=== PATIENT | male | born 1980 | race Asian ===

== ENCOUNTER 2018-07-07 03:59 | Inpatient (IN) | payer OTHER ==
[2018-07-07] VITALS (7 sets, daily range): BP systolic 111–120; BP diastolic 59–75; PULSE 65–81; RESP 18; Ht 182.9 cm; Wt 84.0 kg
[~2018-07-07] VITALS: Ht 182.9 cm; Wt 84.0 kg
[2018-07-07] MEDS ORDERED: ACETAMINOPHEN 325 MG TAB PO STA (04:04)
[2018-07-07] MEDS ORDERED: SODIUM CHLORIDE 0.9% 1L BAG IV* STA (04:04)
[2018-07-07] MEDS ORDERED: CEFTRIAXONE 1 GM/50 ML (PMX) 50 ML IVPB STA (05:10)
[2018-07-07] MEDS ORDERED: AZITHROMYCIN 500MG/NS (PMX) 250 ML IV STA (05:10)
--- NOTE | 2018-07-07 05:26 | ERD ---
ER Documentation Chief Complaint Chief Complaint BIB RA81,chest pain after meth use,rec'd aspirin 124 mg & 1 nitro HPI This is a 37-year-old male who complains of chest pain after menses. Patient was given aspirin in the field. Denies any fevers or chills. He denies nausea vomiting. Admits to using methamphetamines all throughout the day. Denies any other current complaints. Patient is a poor historian ROS All systems reviewed and are negative except as per history of present illness. Allergies Allergies: Coded Allergies: No Known Allergy (Unverified , 07/07/18) PMhx/Soc Medical and Surgical Hx: pt denies Surgical Hx Hx Cardiac Disorders: Yes (HTN) Hx Alcohol Use: No Hx Substance Use: Yes (METH MARIJUANA) Hx Tobacco Use: Yes Smoking Status: Current every day smoker Physical Exam Vitals Vital Signs Date Temp Pulse Resp B/P (MAP) Pulse Ox O2 O2 Flow FiO2 Time Delivery Rate 07/07/18 86 24 136/95 97 Room Air 04:14 (109) 07/07/18 102.2 86 18 124/89 95 04:02 (101) Physical Exam Const: No acute distress Head: Atraumatic Eyes: Normal Conjunctiva ENT: Normal External Ears, Nose and Mouth. Neck: Full range of motion. No meningismus. Resp: Clear to auscultation bilaterally Cardio: Regular rate and rhythm, no murmurs Abd: Soft, non tender, non distended. Normal bowel sounds Skin: No petechiae or rashes Back: No midline or flank tenderness Ext: No cyanosis, or edema Neur: Awake and alert Psych: Normal Mood and Affect Result Diagram: 07/07/18 0424 07/07/18 0424 Results 24 hrs Laboratory Tests Test 07/07/18 04:24 07/07/18 04:30 07/07/18 04:33 White Blood Count 20.6 10^3/ul Red Blood Count 4.61 10^6/ul Hemoglobin 13.9 g/dl Hematocrit 41.6 % Mean Corpuscular Volume 90.2 fl Mean Corpuscular Hemoglobin 30.2 pg Mean Corpuscular 33.4 g/dl Hemoglobin Concent Red Cell Distribution Width 12.3 % Platelet Count 334 10^3/UL Mean Platelet Volume 8.7 fl Immature Granulocytes % 0.800 % Neutrophils % 83.2 % Lymphocytes % 6.4 % Monocytes % 9.3 % Eosinophils % 0.0 % Basophils % 0.3 % Nucleated Red Blood Cells % 0.0 /100WBC Immature Granulocytes # 0.170 10^3/ul Neutrophils # 17.1 10^3/ul Lymphocytes # 1.3 10^3/ul Monocytes # 1.9 10^3/ul Eosinophils # 0.0 10^3/ul Basophils # 0.1 10^3/ul Nucleated Red Blood Cells # 0.0 10^3/ul Prothrombin Time 12.8 Sec Prothrombin Time Ratio 1.0 INR International 0.95 Normalized Ratio Activated Partial Thromboplast 28.6 Sec Time Sodium Level 131 mmol/L Potassium Level 4.0 mmol/L Chloride Level 91 mmol/L Carbon Dioxide Level 29 mmol/L Anion Gap 11 Blood Urea Nitrogen 11 mg/dl Creatinine 1.02 mg/dl Est Glomerular Filtrat > 60 mL/min Rate mL/min Glucose Level 112 mg/dl Calcium Level 8.7 mg/dl Total Bilirubin 0.6 mg/dl Direct Bilirubin 0.00 mg/dl Indirect Bilirubin 0.6 mg/dl Aspartate Amino Transf (AST/SGOT) 29 IU/L Alanine 20 IU/L Aminotransferase (ALT/SGPT) Alkaline Phosphatase 73 IU/L Troponin I < 0.012 ng/ml Total Protein 6.8 g/dl Albumin 3.8 g/dl Globulin 3.00 g/dl Albumin/Globulin Ratio 1.26 Urine Color YELLOW Urine Clarity CLEAR Urine pH 7.0 Urine Specific [place] 1.009 Urine Ketones NEGATIVE mg/dL Urine Nitrite NEGATIVE mg/dL Urine Bilirubin NEGATIVE mg/dL Urine Urobilinogen NEGATIVE mg/dL Urine Leukocyte Esterase NEGATIVE Andrew/ul Urine Hemoglobin NEGATIVE mg/dL Urine Glucose NEGATIVE mg/dL Urine Total Protein NEGATIVE mg/dl POC Venous Lactate 1.6 mmol/L Current Medications Medications Dose Sig/Ifrah Start Time Status Last (Trade) Ordered Route PRN Stop Time Admin Dose Reason Admin Sodium 2,520 ml BOLUS OVER 2 07/07/18 DC 07/07/18 Chloride HOURS STAT 04:04 07/07/18 04:42 (NS) IV* 04:05 650 mg ONCE STAT 07/07/18 DC 07/07/18 Acetaminophen PO 04:04 07/07/18 04:43 (Tylenol 04:05 Tab) Azithromycin 250 ml @ ONCE STAT 07/07/18 250 mls/hr IV 05:10 07/07/18 06:09 Ceftriaxone 50 ml @ ONCE STAT 07/07/18 Sodium 100 mls/hr IVPB 05:10 07/07/18 05:39 Procedures/MDM EKG: Rate/Rhythm: Sinus tachycardia QRS, ST, T-waves: [No changes consistent w/ acute ischemia] Impression: [No evidence of ischemia or arrhythmia] Chest X-ray 1V Interpreted by me: Soft Tissue: No acute abnormalities Bones: No acute abnormalities Mediastinum/Cardiac Silhouette/Lungs: Right lower lobe infiltrate Medical decision making: This a 37-year-old male has what looks to be right lower lobe infiltrate. Given the severity of the infiltrate, the patient's comorbidities, I feel the patient is to be admitted for further evaluation and management. Started on broad-spectrum antibiotics post blood cultures. Lactic acid negative indicating no signs of sepsis with a normal blood pressure. Patient will be admitted to the hospitalist. Departure Diagnosis: Primary Impression: Chest pain Chest pain type: unspecified Qualified Codes: R07.9 - Chest pain, unspecified Additional Impression: Pneumonia Pneumonia type: due to unspecified organism Laterality: right Lung location: lower lobe of lung Qualified Codes: J18.1 - Lobar pneumonia, unspecified organism Condition: Serious VERONIKA MISHRA Jul 07, 2018 05:26
[2018-07-07] MEDS ORDERED: BISACODYL (EC) 5 MG TAB PO PRN (06:00)
[2018-07-07] MEDS ORDERED: ACETAMINOPHEN 325 MG TAB PO PRN (06:00)
[2018-07-07] MEDS ORDERED: NITROGLYCERIN (SL) 0.4 MG TAB SL PRN (06:00)
[2018-07-07] MEDS ORDERED: HYDROCODONE/APAP (5/325) TAB PO PRN (06:00)
[2018-07-07] MEDS ORDERED: ONDANSETRON 4 MG INJ IV PRN (06:00)
[2018-07-07] MEDS ORDERED: NACL 0.9% 3 ML SYG IV SCH (06:00)
[2018-07-07] MEDS ORDERED: DOCUSATE SODIUM 100 MG CAP PO PRN (06:00)
[2018-07-07] MEDS: ENOXAPARIN 30 MG/0.3 ML SYG SC SCH (09:06)
[2018-07-07] MEDS ORDERED: FUROSEMIDE 20 MG INJ IV ONE (11:30)
[2018-07-07] MEDS: DOCUSATE SODIUM 100 MG CAP PO SCH (17:28)
--- NOTE | 2018-07-07 18:26 | HP ---
DATE OF ADMISSION: 07/07/2018 PRESENTING COMPLAINT: Chest pain. HISTORY OF PRESENTING COMPLAINT: A 37-year-old male who is not a very good historian with a history of chronic methamphetamine use for the last three years who presented to the Emergency Room today wit h weakness and lethargy and chest pain that started a few hours prior to presentation. The patient a dmits to having been gambling and using methamphetamine for the last day or more and started having u nresolving chest pain in his mid-chest. At this time, his chest pain is comfortable, but was also no omar to have a fever in the Emergency Room. He had also presented with lethargy and cough for the las t week or so. Denies dysuria or hematuria. Currently denies abdominal pain, nausea or vomiting. A chest x-ray in the Emergency Room was suggestive of right-sided pneumonia. The patient is being admi tted for sepsis and management. PAST MEDICAL HISTORY: None other than a history of being told that he probably could not have childr en. PAST SURGICAL HISTORY: The patient denies. ALLERGIES: NO KNOWN DRUG ALLERGIES. SOCIAL HISTORY: The patient smokes tobacco. He says about 1 to 2 cigarettes daily and also has been using methamphetamine consistently for the last three years. He has been ____. He uses alcohol occ asionally. REVIEW OF SYSTEMS: A 12-point review of systems and pertinent findings are as noted in HPI. HOME MEDICATION LIST. The patient denies use of prescription drugs. PHYSICAL EXAMINATION: VITAL SIGNS: Temperature at this time 99.5, temperature maximum 102.2, pulse improved to 75, respira tions 18, blood pressure 114/69, saturations 97% on room air. GENERAL: The patient was admitted in a recliner in the room, currently in no distress. He did look very lethargic, but as mentioned, he had been sleeping a lot. HEENT: Head is normocephalic without evidence of trauma. Pupils equal and reactive. There is no sc leral jaundice. There is no conjunctival pallor. Mucous membranes are moist. Posterior pharynx dmitry ar of erythema and exudate. NECK: Supple without JVD. CHEST: The patient is diffusely diminished bilaterally. No crackles or wheezing. CARDIOVASCULAR: S1, S2, no murmurs. ABDOMEN: Soft, nontender, nondistended, normoactive bowel sounds. EXTREMITIES: No lower extremity edema. SKIN: Devoid of rash or jaundice. PERTINENT LABORATORY VALUES: Leukocytosis is 20,000. Normocytic normochromic anemia with hemoglobin of 13.9. Hyponatremia with sodium of 131. Urine toxicology screen positive for methamphetamine. IMAGING STUDIES: He had multiple imaging studies at the time of my review. CT scan of the chest is consistent with a dilated pulmonary artery suggestive of pulmonary hypertension, right middle lobe co nsolidation with trace right effusion and atelectasis, small pericardial effusion, and nonspecific en larged precarinal lymph nodes. He also had a CT of the abdomen and pelvis that basically showed the same. Also gastric fundal body will up with prominent suggestive of gastritis and then there is also some pelvocaliectasis and prominent right-sided pelvis suggestive of a chronic bladder outlet obstru ction without evidence of urinary calculi and the posterior segment was unremarkable. ASSESSMENT: 1. Mild sepsis secondary to right-sided pneumonia based on his history of strong suspicion of aspira tion pneumonia. 2. Hyponatremia. 3. Chronic normocytic anemia, stable. 4. Substance abuse with methamphetamine, tobacco. PLAN: A lot of the visit was spent doing counseling on methamphetamine use and explained to the tomas ent why he needs to quit and exploring options with him. He is admitted to telemetry floor to rule o ut acute coronary syndrome. He needs a 2D echo to assess the small pericardial effusion and to see i f any further intervention is warranted, also to evaluate his cardiac status in view of his chronic m ethamphetamine use. His hypernatremia may indicate that the patient may be slightly fluid overloaded . In the interim, we will continue empiric antibiotics though, followup blood cultures and sputum cu ltures as well. worker's compensation claims examiner will be consulted to provide resources to help with substance use as w sid. Further interventions will depend on his clinical course. Plan of care has been discussed in d etail with patient, questions have been answered. For full information and clarification, please rev iew the patient's chart. Dictated By: ROBYN HITCHCOCK MD BA/NTS Conf#: [id number] DID#: [id number] CC: MARA DESIR MD;*EndCC*
--- NOTE | 2018-07-07 19:39 | RADRPT ---
Echocardiogram Report Patient Name: ISAAK MAHARAJPatient ID: [id number] : 1980 (37y 11m)Study Date: 07/07/2018 7:35:26 AM Gender: MAccession #: [id number] Tech: Rory Mohan RDCS Location: [facility] Ref.Physician: MARA DESIR Height(Cm): BSA: Weight(Kg): Quality: GoodAccount #: Procedures: Echocardiographic Report: Transthoracic echocardiogram with complete 2D, M-Mode, and doppler examination. Indications: Chest Pain. Measurements: 2D/M Mode Doppler Measurement Value Normal Range Measurement Value Normal Range LVIDd 2D 4.3 [ 4.2 - 5.8 ] cm AV Peak Jose Alejandro 1.5 [ 100.0 - 170.0 ] cm/sec LVIDs 2D 2.2 [ 2.5 - 4.0 ] cm AV Peak PG 10.0 [ 2.0 - 9.0 ] mmHg LVPWd 2D 1.0 [ 0.6 - 1.0 ] cm LVOT Peak Jose Alejandro 1.0 [ 70.0 - 110.0 ] cm/sec IVSd 2D 1.3 [ 0.6 - 1.0 ] cm LVOT Peak PG 4.0 [ 2.0 - 6.0 ] mmHg AoR Diam 2D 2.6 [ 2.6 - 3.4 ] cm MV E Peak Jose Alejandro 0.7 [ 60.0 - 130.0 ] cm/sec EDV 2D 82.2 [ 62.0 - 150.0 ] ml MV A Peak Jose Alejandro 0.6 [ 100.0 - 120.0 ] cm/sec ESV 2D 15.3 [ 21.0 - 61.0 ] ml MV E/A 1.1 [ 0.8 - 1.5 ] ratio EF 2D 81.4 [ 52.0 - 72.0 ] percent MV Decel Time 183 [ 104 - 258 ] msec LA Dimen 2D 3.3 [ 3.0 - 4.0 ] cm Lat E` Jose Alejandro 0.2 [ 10.0 - 15.0 ] cm/sec Lateral E/E` 3.6 [ 1.0 - 2.0 ] ratio MV E/A 1.1 [ 0.8 - 1.5 ] ratio TR Peak Jose Alejandro 3.8 [ 100.0 - 280.0 ] cm/sec TR Peak PG 57.0 mmHg RVSP 60.0 [ 10.0 - 36.0 ] mmHg RA Pressure 3.0 mmHg Findings: Left Ventricle: Normal left ventricular systolic function. Normal left ventricular cavity size. Mild asymmetric septal hypertrophy. Ejection fraction is visually estimated at 65 %. Tissue Doppler/Mitral Doppler indices are within normal limits. Right Ventricle: Moderate enlargement of right ventricle. Mild right ventricular hypokinesis. Left Atrium: The left atrium is normal in size. Right Atrium: There is mild enlargement of right atrium. Mitral Valve: Normal appearance and function of the mitral valve with trace physiologic regurgitation. Aortic Valve: Normal appearance of the aortic valve. No significant aortic stenosis or insufficiency. Tricuspid Valve: Normal appearance of the tricuspid valve. Estimated peak PA systolic pressure 60 mmHg. There is moderate tricuspid regurgitation. Pulmonic Valve: Pulmonic valve not well visualized. Pericardium: Normal pericardium with no significant pericardial effusion. Aorta: Normal aortic root. IVC: Normal size and normal respiratory collapse consistent with normal right atrial pressure. Conclusions: Asymmetric septal hypertrophy with normal systolic function. Dilated hypokinetic right ventricle. Right atrial enlargement. Moderate tricuspid regurgitation and severe pulmonary hypertension. Trace mitral regurgitation. Electronically Signed By: Rupali Orosco 2018-07-07 19:38:15 PST
[2018-07-07] MEDS: LORAZEPAM 2 MG INJ IV PRN (20:15)
[2018-07-08] VITALS (8 sets, daily range): BP systolic 123–142; BP diastolic 59–95; PULSE 57–62; RESP 18–22
[2018-07-08] MEDS: LORAZEPAM 2 MG INJ IV PRN (04:21)
[2018-07-08] MEDS: DOCUSATE SODIUM 100 MG CAP PO SCH (05:23)
[2018-07-08] MEDS ORDERED: CEFTRIAXONE 1 GM/50 ML (PMX) 50 ML IVPB SCH (06:00)
[2018-07-08] MEDS ORDERED: AZITHROMYCIN 500MG/NS (PMX) 250 ML IVPB SCH (06:00)
[2018-07-08] MEDS: ENOXAPARIN 30 MG/0.3 ML SYG SC SCH (09:16)
[2018-07-08] MEDS ORDERED: LEVO500T48 PO (14:02)
[2018-07-08] MEDS ORDERED: LACT1CAP5 PO (14:02)
--- NOTE | 2018-07-08 14:55 | PDOCDIS ---
Discharge Instructions CONDITION [id number] Patient Condition: [id number] Stable HOME CARE INSTRUCTIONS: [id number] Diet Instructions: Oxjys5g Regular ACTIVITY: [id number] Activity Restrictions: Mcnlz2g Slowly Increase Activity Rest between Activity FOLLOW UP/APPOINTMENTS Follow-up Plan 1. Followup with your primary doctor within the next 1-2 weeks. If you don't have one please let someone know, we can give you resources that may help you pick one. You may call Dr Osmany Alvarez's office. he's accepting new patients Name, Degree: Osmany Alvarez MD Specialty: Internal Medicine Comments: Office Address: [address] [facility] [address] [place] [id number] Office Office You may also call your insurance company to assign one to you. 2. Review your medication list with your nurse before leaving and if you need new prescriptions please let your nurse know. 3. I may have made changes to your home medications or given you new prescriptions, please let your primary doctor know as well. 4. Stay compliant with your medications and report any side effects to your PCP or pharmacist. 5. Return to the ER if you have any concerns and cannot reach your doctors or call your insurance company, they usually have a nurse that can help you. 6. Please stop smoking Methamphetamines and tobacco . If you have already stopped, Good for you!!!. It is however an ongoing process. If you need help or resources, please let someone know before you leave. We are here to help you. It has been associated with a lot of disease processes and is not favourable for healing. ROBYN HITCHCOCK Jul 08, 2018 14:55
--- NOTE | 2018-07-10 09:04 | DS ---
Date/Time of Note Date/Time of Note DATE: 07/10/18 TIME: 09:01 Discharge Summary Admission/Discharge Info Admit Date/Time Jul 07, 2018 at 05:27 Discharge Date/Time Jul 08, 2018 at 15:39 Discharge Diagnosis 1. Mild sepsis secondary to right-sided pneumonia based on his history of strong suspicion of aspiration pneumonia. 2. Hyponatremia : improved 3. Chronic normocytic anemia, stable. 4. Substance abuse with methamphetamine, tobacco. . Patient Condition: Stable Consults Hospital Course 37-year-old male who had presented with cough and lethargy and was also found to have mild sepsis with right-sided pneumonia. Patient has a long history for the last 3 years of methamphetamine abuse and stated that he had been smoking methamphetamine transverse in the days prior to admission. He was treated with IV antibiotics, sepsis improved and he was discharged in stable condition to condition to continue his antibiotic therapy as outpatient. He was counseled extensively on the need to quit amphetamine use, he was seen by the manager social work and resources were provided. He was discharged now in stable condition. . Home Meds Active Scripts Lactobacillus Acidophilus (Acidophilus) 1 Each Capsule, 1 EACH PO BID, #14 CAP Prov:ROBYN HITCHCOCK 07/08/18 Levofloxacin* (Levaquin*) 500 Mg Tablet, 500 MG PO DAILY for 7 Days, #7 TAB Prov:RBOYN HITCHCOCK 07/08/18 Follow-up Plan 1. Followup with your primary doctor within the next 1-2 weeks. If you don't have one please let someone know, we can give you resources that may help you pick one. You may call Dr Osmany Alvarez's office. he's accepting new patients Name, Degree: Osmany Alvarez MD Specialty: Internal Medicine Comments: Office Address: [address] [place] [id number] Office Office You may also call your insurance company to assign one to you. 2. Review your medication list with your nurse before leaving and if you need new prescriptions please let your nurse know. 3. I may have made changes to your home medications or given you new prescriptions, please let your primary doctor know as well. 4. Stay compliant with your medications and report any side effects to your PCP or pharmacist. 5. Return to the ER if you have any concerns and cannot reach your doctors or call your insurance company, they usually have a nurse that can help you. 6. Please stop smoking Methamphetamines and tobacco . If you have already stopped, Good for you!!!. It is however an ongoing process. If you need help or resources, please let someone know before you leave. We are here to help you. It has been associated with a lot of disease processes and is not favourable for healing. Primary Care Provider Care Physician No Primary Time spent on discharge: > 30 minutes ROBYN IHTCHCOCK Jul 10, 2018 09:04
== END 2018-07-08 15:39 | disposition home or self-care (01) | DRG 871 ==
LOC: E/R 03:59 → 6WM 05:27 → CANRESERV 08:25
PROVIDERS: ADMIT Family Medicine; ATTEND Family Medicine
DX: A41.9 Sepsis, unspecified organism (principal); J69.0 Pneumonitis due to inhalation of food and vomit; E87.1 Hypo-osmolality and hyponatremia; I10 Essential (primary) hypertension; R07.9 Chest pain, unspecified; D64.9 Anemia, unspecified; F12.10 Cannabis abuse, uncomplicated; F15.10 Other stimulant abuse, uncomplicated; F17.210 Nicotine dependence, cigarettes, uncomplicated
CPT/HCPCS: 36415; 71045; 71250; 74176; 76775; 80053; 80061; 80307; 81003; 82550; 82553; 83036; 83605; 83735; 84443; 84484; 85025; 85610; 85730; 87040; 87070; 87086; 93005; 93306; 96374; J0456; J0696; J1650; J1940; J2060; J7030